=== PATIENT | female | born 2005 | race Caucasian/White ===

== ENCOUNTER 2023-04-18 16:24 | Outpatient (CLI) | payer OTHER, SELFPAY ==
[2023-04-18 21:15] LABS: Chlamydia DNA Amplified* NOT DETECTED (No Detected); GC DNA Amplified* NOT DETECTED (No Detected)
== END 2023-04-18 16:25 | disposition home or self-care (01) ==
LOC: NFLDREF 16:24
PROVIDERS: PCP Internal Medicine; Visit Provider Registered Nurse
DX: Z11.3 Encounter for screening for infections with a predominantly sexual mode of transmission (principal)
CPT/HCPCS: 87491; 87591